=== PATIENT | female | born 2000 ===

== ENCOUNTER → 2025-03-27 | Day surgery (SDC) | payer OTHER ==
[~2025-03-27] MED LIST: DEXAMETHASONE SOD PHOS INJ 4 MG/ML SDV ONE; FENTANYL CITRATE/PF 100MCG/2 ML INJ ONE; KETOROLAC TROMETHAMINE 30 MG/ML VIAL ONE; LACTATED RINGER'S 1,000 ML ONE; MIDAZOLAM HCL 2 MG/2 ML VIAL ONE; ONDANSETRON HCL INJ 2MG/ML 2ML 2 MG/ML VIAL ONE; PROPOFOL IV EMULSION 10 MG/ML 20 ML VIAL ONE
[2025-03-27 14:15] VITALS: BP 116/83; PULSE 54; RESP 16; O2SAT 54
== END | disposition home or self-care (01) ==
LOC: OR 08:00
PROVIDERS: ATTEND Specialist
DX: M67.431 Ganglion, right wrist (principal); Z01.818 Encounter for other preprocedural examination
CPT/HCPCS: 25111; 81025; 88304; J0690; J1100; J1885; J2250; J2405; J2704; J3010; J7121